=== PATIENT | female | born 1985 | race African-American/Black ===

== ENCOUNTER 2018-04-05 22:09 | Emergency (ER) | payer OTHER ==
[2018-04-05] MEDS ORDERED: NS 0.9% 1000 ML* 1,000 ML IV ONE (22:46)
[2018-04-05 23:20] LABS: ABS Basophils 0.1 10^3/ul (0-0.2); ABS Eosinophils 0.2 10^3/ul (0-0.6); ABS Lymphocytes 2.4 10^3/ul (1.0-4.8); ABS Monocytes 0.6 10^3/ul (0-0.8); ABS Neutrophils 4.7 10^3/ul (1.5-7.7); ABS Nucleated RBC 0 10^3/ul; Eosinophil % 3.1 % (0-6); Hematocrit 33 % (35-47); Hemoglobin 11.5 g/dl (12.0-16.0); Lymphocyte % 30.2 % (25-47); Mean Corpuscular HGB Conc 35 g/dl (31-36); Mean Corpuscular Hemoglobin 33 pg (27-31); Mean Corpuscular Volume 94 fL (80-97); Mean Platelet Volume 8.5 um3 (7.4-10.4); Nucleated Red Blood Cells % 0.2; Platelet Count 254 10^3/ul (150-450); Red Blood Count 3.51 10^6/ul (4.00-5.40); Red Cell Distribution Width 14 % (10.5-15)
[2018-04-05 23:21] LABS: Urine Appearance Clear; Urine Blood 3+ (Negative); Urine Color Yellow; Urine Ketones Negative (Negative); Urine Protein Negative (Negative); Urine Red Blood Cell 3+(>10/hpf) (Absent); Urine Urobilinogen Negative (Negative); Urine White Blood Cell Trace(0-5/hpf) (Absent)
[2018-04-05 23:38] LABS: EGFR Non-African American 103.8 (>60)
--- NOTE | 2018-04-06 01:07 | ED ---
Hypertension - HPI Summary HPI Summary: This patient is a 32 year old F, three days post-, presenting to [facility] accompanied by her with a chief complaint of a frontal headache and hypertension with blurred vision since this morning. Patient reports a blood pressure of 155/89. She called her OBGYN who recommended she come to the ED due to history of post- pre-eclampsia. Headache is rated 4/10 in severity. - History of Current Complaint Chief Complaint: EDHypertension Stated Complaint: HIGH BLOOD PRESSURE/HEADACHE/BLURRED VISION Time Seen by Provider: 04/05/18 22:50 Hx Obtained From: Patient Onset/Duration: Started Hours Ago Timing: Constant Associated Signs & Symptoms: Vision Changes, Headaches Related Hx: Similar Episode - Allergies/Home Medications Allergies/Adverse Reactions: Allergies Allergy/AdvReac Type Severity Reaction Status Date / Time No Known Allergies Allergy Verified 04/01/18 22:35 PMH/Surg Hx/FS Hx/Imm Hx Endocrine/Hematology History: Denies: Hx Thyroid Disease Cardiovascular History: Reports: Hx Hypertension - during Respiratory History: Denies: Hx Asthma EENT History: Denies: Hx Deafness Infectious Disease History: No Infectious Disease History: Denies: Traveled Outside the [place] in Last 30 Days - Family History Known Family History: Positive: Hypertension - Social History Alcohol Use: None Substance Use Type: Reports: None Smoking Status (MU): Never Smoked Tobacco Review of Systems Positive: Blurred Vision Positive: Other - hypertension Positive: Headache All Other Systems Reviewed And Are Negative: Yes Physical Exam - Summary Physical Exam Summary: Appearance: Well-appearing, Well-nourished, lying in bed comfortably Skin: Warm, dry, no obvious rash Eyes: sclera anicteric, no conjunctival pallor ENT: mucous membranes moist, pharynx appears normal Neck: Supple, nontender Respiratory: Clear to auscultation, no signs of respiratory distress Cardiovascular: Normal S1, S2. No murmurs. Normal distal pulses in tibial and radial bilaterally. Abdomen: Soft, nontender, normal active bowel sounds present Musculoskeletal: Normal, Strength/ROM Intact Neurological: A&Ox3, awake and alert, mentation is normal, speech is fluent and appropriate Psychiatric: affect is normal, does not appear anxious or depressed Triage Information Reviewed: Yes Vital Signs On Initial Exam: Initial Vitals Temp Pulse Resp BP Pulse Ox 97.7 F 80 20 146/85 99 04/05/18 22:15 04/05/18 22:15 04/05/18 22:15 04/05/18 22:15 04/05/18 22:15 Vital Signs Reviewed: Yes Diagnostics - Vital Signs Vital Signs Temp Pulse Resp BP Pulse Ox 04/06/18 00:00 77 99 04/05/18 23:56 79 129/88 99 04/05/18 23:41 82 126/89 99 04/05/18 23:26 78 139/79 98 04/05/18 23:13 82 143/93 96 04/05/18 23:12 82 99 04/05/18 22:39 76 145/84 99 04/05/18 22:38 84 98 04/05/18 22:15 97.7 F 80 20 146/85 99 - Laboratory Lab Results: Lab Results 04/05/18 04/05/18 04/05/18 Range/Units 23:06 23:06 23:11 WBC 8.0 (3.5-10.8) 10^3/ul RBC 3.51 L (4.00-5.40) 10^6/ul Hgb 11.5 L (12.0-16.0) g/dl Hct 33 L (35-47) % MCV 94 (80-97) fL MCH 33 H (27-31) pg MCHC 35 (31-36) g/dl RDW 14 (10.5-15) % Plt Count 254 (150-450) 10^3/ul MPV 8.5 (7.4-10.4) um3 Neut % (Auto) 58.4 (38-83) % Lymph % (Auto) 30.2 (25-47) % [place] % (Auto) 7.3 H (0-7) % Eos % (Auto) 3.1 (0-6) % Baso % (Auto) 1.0 (0-2) % Absolute Neuts (auto) 4.7 (1.5-7.7) 10^3/ul Absolute Lymphs (auto) 2.4 (1.0-4.8) 10^3/ul Absolute Monos (auto) 0.6 (0-0.8) 10^3/ul Absolute Eos (auto) 0.2 (0-0.6) 10^3/ul Absolute Basos (auto) 0.1 (0-0.2) 10^3/ul Absolute Nucleated RBC 0 10^3/ul Nucleated RBC % 0.2 Sodium 139 (135-145) mmol/L Potassium 3.9 (3.5-5.0) mmol/L Chloride 106 (101-111) mmol/L Carbon Dioxide 24 (22-32) mmol/L Anion Gap 9 (2-11) mmol/L BUN 12 (6-24) mg/dL Creatinine 0.66 (0.51-0.95) mg/dL Est GFR ( Amer) 125.6 (>60) Est GFR (Non-Af Amer) 103.8 (>60) BUN/Creatinine Ratio 18.2 (8-20) Glucose 92 (70-100) mg/dL Calcium 9.0 (8.6-10.3) mg/dL Total Bilirubin 0.30 (0.2-1.0) mg/dL AST 38 (13-39) U/L ALT 40 (7-52) U/L Alkaline Phosphatase 108 H (34-104) U/L Total Protein 7.1 (6.4-8.9) g/dL Albumin 3.4 (3.2-5.2) g/dL Globulin 3.7 (2-4) g/dL Albumin/Globulin Ratio 0.9 L (1-3) Urine Color Yellow Urine Appearance Clear Urine pH 7.0 (5-9) Ur Specific [place] 1.010 (1.010-1.030) Urine Protein Negative (Negative) Urine Ketones Negative (Negative) Urine Blood 3+ A (Negative) Urine Nitrate Negative (Negative) Urine Bilirubin Negative (Negative) Urine Urobilinogen Negative (Negative) Ur Leukocyte Esterase Trace A (Negative) Urine WBC (Auto) Trace(0-5/hpf) (Absent) Urine RBC (Auto) 3+(>10/hpf) A (Absent) Ur Squamous Epith Cells Present A (Absent) Urine Bacteria Absent (Absent) Urine Glucose Negative (Negative) Result Diagrams: 04/05/18 23:06 04/05/18 23:06 Lab Statement: Any lab studies that have been ordered have been reviewed, and results considered in the medical decision making process. Hypertension Course/Dx - Course Course Of Treatment: 32 year old F, three days post-, presenting with a frontal headache and hypertension with blurred vision since this morning. Patient reports a history of post- pre-eclampsia. Patient was given IVF. Bloodwork is unremarkable. Patient was mildly hypertensive while in ED, however blood pressure improved and patient was discharged home. - Diagnoses Differential Diagnosis/HQI PQRI: Eclampsia, Hypertension, Hypertensive Crisis, Migraine Headache Provider Diagnoses: Acute headache Discharge - Sign-Out/Discharge Documenting (check all that apply): Patient Departure - discharge - Discharge Plan Condition: Good Disposition: HOME Patient Education Materials: Acute Headache (ED) Referrals: Mayte Luciano MD [Medical Doctor] - 2 Days (for a BP check) - Billing Disposition and Condition Condition: GOOD Disposition: Home - Attestation Statements Document Initiated by Scribe: Yes Documenting Scribe: Shona Levy Provider For Whom Renita is Documenting (Include Credential): Luís Goel MD Scribe Attestation: Shona Larkin, scribed for Luís Goel MD on 04/06/18 at 0135. Scribe Documentation Reviewed: Yes Provider Attestation: The documentation as recorded by the Shona contreras accurately reflects the service I personally performed and the decisions made by Luís bryant MD
[2018-04-06 01:39] VITALS: BP 132/89
== END 2018-04-06 01:01 | disposition home or self-care (01) ==
LOC: ED 22:09
DX: R51 Headache (principal); H53.8 Other visual disturbances
CPT/HCPCS: 36415; 80053; 81003; 81015; 85025; 87086; 99282

== ENCOUNTER 2019-09-03 21:49 | Emergency (ER) | payer OTHER ==
--- NOTE | 2019-09-03 22:04 | ED ---
Throat Pain/Nasal Congestion - HPI Summary HPI Summary: Patient complains of broken tooth 1 week ago with subsequent dental pain. Patient was initially evaluated by dentist and prescribed naproxen and amoxicillin. Pain persisted, and patient was prescribed clindamycin which she started today. Patient states naproxen is not controlling pain. Patient states she called dentist and dentist told her to come to the ED. Denies any other pain, injury or symptoms. - History of Current Complaint Chief Complaint: EDDentalPain Time Seen by Provider: 09/03/19 21:56 Hx Obtained From: Patient Onset/Duration: Gradual Onset, Lasting Days Severity: Moderate Associated Signs And Symptoms: Positive: Negative Cough: None - Allergies/Home Medications Allergies/Adverse Reactions: Allergies Allergy/AdvReac Type Severity Reaction Status Date / Time No Known Allergies Allergy Verified 09/03/19 21:51 Home Medications: Home Medications Ibuprofen TAB* [Motrin TAB* 600 MG] 600 mg PO Q6H PRN #30 tab 04/04/18 [Rx Confirmed 09/03/19] Lidocaine 2% VISCOUS* [Xylocaine 2% Viscous*] 15 ml SWISH SPIT Q6H PRN #1 btl [Rx] Naproxen Sodium [Naproxen 550 mg tab] 550 mg PO Q12HR 09/03/19 [History Confirmed 09/03/19] PMH/Surg Hx/FS Hx/Imm Hx Endocrine/Hematology History: Denies: Hx Diabetes, Hx Thyroid Disease Cardiovascular History: Reports: Hx Hypertension - during Denies: Hx Pacemaker/ICD Respiratory History: Denies: Hx Asthma History: Denies: Hx Dialysis, Hx Renal Disease Sensory History: Denies: Hx Deafness, Hx Hearing Aid Opthamlomology History: Denies: Hx Eye Injury EENT History: Denies: Hx Deafness Neurological History: Denies: Hx Dementia Psychiatric History: Denies: Hx Panic Disorder Infectious Disease History: No Infectious Disease History: Denies: Traveled Outside the [place] in Last 30 Days - Family History Known Family History: Positive: Hypertension - Social History Alcohol Use: None Substance Use Type: Reports: None Smoking Status (MU): Never Smoked Tobacco Review of Systems Constitutional: Negative Eyes: Negative Positive: Dental Pain Cardiovascular: Negative Respiratory: Negative Gastrointestinal: Negative Genitourinary: Negative Musculoskeletal: Negative Skin: Negative Neurological/Mental Status: Negative Psychological: Normal All Other Systems Reviewed And Are Negative: Yes Physical Exam - Summary Physical Exam Summary: No evidence of abscess, swelling of gums or oral trauma. Positive broken right upper molar Triage Information Reviewed: Yes Vital Signs On Initial Exam: Initial Vitals Temp Pulse Resp BP Pulse Ox 98.3 F 66 18 166/105 100 09/03/19 21:52 09/03/19 21:52 09/03/19 21:52 09/03/19 21:52 09/03/19 21:52 Vital Signs Reviewed: Yes Appearance: Positive: Well-Appearing Head/Face: Positive: Normal Head/Face Inspection Eyes: Positive: Normal Dental: Positive: Dental Fracture @ Neck: Positive: Supple Respiratory/Lung Sounds: Positive: Clear to Auscultation Cardiovascular: Positive: Normal Abdomen Description: Positive: Nontender Musculoskeletal: Positive: Normal Neurological: Positive: Normal Psychiatric: Positive: Normal AVPU Assessment: Alert - [place] Coma Scale Best Eye Response: 4 - Spontaneous Best Motor Response: 6 - Obeys Commands Best Verbal Response: 5 - Oriented Coma Scale Total: 15 Procedures - Sedation Patient Received Moderate/Deep Sedation with Procedure: No Diagnostics - Vital Signs Vital Signs Temp Pulse Resp BP Pulse Ox 09/03/19 21:52 98.3 F 66 18 166/105 100 - Laboratory Lab Statement: Any lab studies that have been ordered have been reviewed, and results considered in the medical decision making process. EENT Course/Dx - Course Course Of Treatment: Patient complains of broken tooth 1 week ago with subsequent dental pain. Patient was initially evaluated by dentist and prescribed naproxen and amoxicillin. Pain persisted, and patient was prescribed clindamycin which she started today. Patient states naproxen is not controlling pain. Patient states she called dentist and dentist told her to come to the ED. Denies any other pain, injury or symptoms. Vital signs within normal limits. Pain improved with viscous lidocaine. - Diagnoses Provider Diagnoses: Pain, dental Discharge ED - Sign-Out/Discharge Documenting (check all that apply): Patient Departure - Discharge Plan Condition: Stable Disposition: HOME Prescriptions: Lidocaine 2% VISCOUS* [Xylocaine 2% Viscous*] 15 ml SWISH SPIT Q6H PRN #1 btl PRN Reason: Pain - Moderate Patient Education Materials: Toothache (ED) Referrals: Elena West MD [Primary Care Provider] - Additional Instructions: Use viscous lidocaine for 3-4 minutes at a time over painful tooth. Do not use for longer. Use every 4-6 hours. Follow-up with your dentist as soon as possible. - Billing Disposition and Condition Condition: STABLE Disposition: Home
[2019-09-03] MEDS ORDERED: Lidocaine 2% VISCOUS* 15 ML UDC PO ONE ×2 (22:12→22:27)
[2019-09-03 22:37] VITALS: BP 136/87
== END 2019-09-03 22:35 | disposition home or self-care (01) ==
LOC: ED 21:49
DX: K08.89 Other specified disorders of teeth and supporting structures (principal); K03.81 Cracked tooth
CPT/HCPCS: 99282